=== PATIENT | female | born 1965 | race African-American/Black ===

== ENCOUNTER → 2017-02-01 | Day surgery (SDC) | payer OTHER ==
--- NOTE | 2017-02-04 14:53 | PATH ---
Surgical Pathology Report Patient Name: JJ RAGSDALE [facility]. Rec. #: [id number] /Age/Gender: 1965 (Age: 51) / F Account: [id number] Location: [facility] Taken: 02/01/2017 Received: 02/01/2017 Reported: 02/04/2017 Physicians: Pam Colon M.D. Specimen(s) Received LEFT AXILLARY LYMPH NODE CORE BX Clinical History Suspicious Final Diagnosis LYMPH NODE, LEFT AXILLA, CORE BIOPSY: FRAGMENTS OF BENIGN APPEARING REACTIVE LYMPH NODE. NO MALIGNANCY IDENTIFIED IN THE EXAMINED MATERIAL. Comment: Immunohistochemical stains performed and interpreted at [facility] show the following: Ae/Ae3 keratin is negative with high background, CD3 and CD20 immunostains highlight mixed T and B lymphocyte populations. These results are supportive of the interpretation above. Electronically Signed Janak Sherman M.D. Gross Description Received in formalin labeled "left axilla biopsy lymph node" is a 2.7 x 2.2 x 0.3 cm aggregate of multiple restrepo-yellow, irregular to cylindrical portions of fibroadipose tissue admixed with blood clot. The formalin is filtered and the specimen is entirely submitted in one cassette. Time to formalin fixation: 2 minutes Total formalin fixation time: Approximately 8 hours 02/01/2017
== END | disposition home or self-care (01) ==
LOC: FRADUS-SUR 12:33
PROVIDERS: ATTEND Internal Medicine
PROC: 07B63ZX Excision of Left Axillary Lymphatic, Percutaneous Approach, Diagnostic (ICD-10-PCS; principal; 2017-02-01)
PROC: BH47ZZZ Ultrasonography of Upper Extremity (ICD-10-PCS; 2017-02-01)
DX: R59.9 Enlarged lymph nodes, unspecified (principal)
CPT/HCPCS: 19083; 38505; 76942; 87899; 88305-TC; 88341-TC; 88342-TC; A4648